=== PATIENT | male | born 1950 | race Caucasian/White ===

== ENCOUNTER 2017-02-20 12:08 | Emergency (ER) | payer MEDICARE, BC ==
[2017-02-20] MEDS ORDERED: NORMAL SALINE 1000 ML 1,000 ML IV ONE (12:22)
--- NOTE | 2017-02-20 12:25 | ER Document Report ---
ED Medical Screen (RME) - General Chief Complaint: Urinary Problem Stated Complaint: BACK PAIN,HEADACHE,CHILLS Time Seen by Provider: 02/20/17 12:22 Mode of Arrival: Wheelchair Information source: Patient TRAVEL OUTSIDE OF THE [place] IN LAST 30 DAYS: No - HPI Patient complains to provider of: dysuria, flank pain Onset: Other - Pt with long h/o prostate issues with c/o dysuria and bilaeral flank pain - Related Data Allergies/Adverse Reactions: No Known Allergies Allergy (Unverified 02/20/17 12:12) Past Medical History - Social History Frequency of alcohol use: Occasional Drug Abuse: None Renal/ Medical History: Denies: Hx Peritoneal Dialysis Physical Exam - Vital signs Vitals: Temp Pulse Resp BP Pulse Ox 99.1 F 89 16 139/76 H 98 02/20/17 12:13 02/20/17 12:13 02/20/17 12:13 02/20/17 12:13 02/20/17 12:13 Course - Vital Signs Vital signs: Temp Pulse Resp BP Pulse Ox 99.1 F 89 16 139/76 H 98 02/20/17 12:13 02/20/17 12:13 02/20/17 12:13 02/20/17 12:13 02/20/17 12:13
[2017-02-20 13:26] LABS: APPEARANCE,URINE CLOUDY; BILIRUBIN,URINE NEGATIVE (NEGATIVE); GLUCOSE, URINE 150 mg/dL (NEGATIVE); KETONES,URINE NEGATIVE (NEGATIVE); LEUKOCYTE ESTERASE,URINE LARGE (NEGATIVE); NITRITE,URINE POSITIVE (NEGATIVE); PROTEIN,URINE 100 mg/dL (NEGATIVE); URINE SPECIFIC GRAVITY 1.025
--- NOTE | 2017-02-20 14:25 | RADIOLOGY REPORT (SQ) ---
EXAM DESCRIPTION: CT LTD RENAL STONE PROTOCOL ON COMPLETED DATE/TIME: 02/20/2017 1:08 pm REASON FOR STUDY: L flank pain COMPARISON: None. TECHNIQUE: CT scan of the abdomen and pelvis performed without intravenous or oral contrast. Images reviewed with lung, soft tissue, and bone windows. Reconstructed coronal and sagittal MPR images revi ewed. All images stored on PACS. All CT scanners at this facility use dose modulation, iterative reconstruction, and/or weight based d osing when appropriate to reduce radiation dose to as low as reasonably achievable (ALARA). [facility]: Dose Right [facility]: CareDose [facility]: Dose Right [facility]: Teradose 4D [facility]: [employer] RADIATION DOSE: Up-to-date CT equipment and radiation dose reduction techniques were employed. CTDIv ol: 13.5 mGy. DLP: 772 mGy-cm.mGy. LIMITATIONS: None. FINDINGS: LOWER CHEST: Calcified granuloma right middle lobe axial image 1, benign. NON-CONTRASTED LIVER, SPLEEN, ADRENALS: Low attenuation throughout the liver from fatty infiltration. Focal sparing at the gallbladder fossa. Benign splenic granulomas. No splenomegaly. Adrenal glan ds unremarkable. PANCREAS: No masses. No peripancreatic inflammatory changes. GALLBLADDER: No identified stones by CT criteria. No inflammatory changes to suggest cholecystitis. RIGHT KIDNEY AND URETER: No suspicious masses. Assessment limited by lack of IV contrast. No signif icant calcifications. No hydronephrosis or hydroureter. LEFT KIDNEY AND URETER: No suspicious masses. Assessment limited by lack of IV contrast. No signifi cant calcifications. No hydronephrosis or hydroureter. AORTA AND RETROPERITONEUM: No aneurysm. No retroperitoneal masses or adenopathy. BOWEL AND PERITONEAL CAVITY: No obvious masses or inflammatory changes. No free fluid. Very redundan t sigmoid colon. Large amount of stool in the ascending and transverse colon. No dilated small dre l loops. APPENDIX: Normal. PELVIS, BLADDER, AND ABDOMINAL WALL:No abnormal masses. No free fluid. Bladder normal. BONES: Degenerative changes lower lumbar spine OTHER: No other significant finding. IMPRESSION: NO SIGNIFICANT OR ACUTE PROCESS IN THE ABDOMEN OR PELVIS. COMMENT: Quality ID # [id number]: Final reports with documentation of one or more dose reduction techniques (e.g., Automated exposure control, adjustment of the mA and/or kV according to patient size, use of iterative reconstruction technique) TECHNICAL DOCUMENTATION: JOB ID: [id number] [facility] [employer]- All Rights Reserved
[2017-02-20] MEDS ORDERED: ONDANSETRON HCL INJ/PF 4 MG/2 ML SDV IV ONE (14:49)
[2017-02-20] MEDS ORDERED: MORPHINE SULFATE 10 MG/ML INJ IV ONE (14:49)
[2017-02-20 15:38] LABS: ABSOLUTE EOSINOPHILS # (AUTO) 0.1 10^3/uL (0.0-0.6); ABSOLUTE LYMPHOCYTES (AUTO) 0.7 10^3/uL (0.5-4.7); ABSOLUTE MONOCYTES (AUTO) 0.5 10^3/uL (0.1-1.4); BASOPHILS % (AUTO) 0.3 % (0-2); EOSINOPHILS % (AUTO) 0.9 % (0-6); HEMATOCRIT 33.3 % (37.9-51.0); HGB HCT DIFFERENCE 2.7; LYMPHOCYTES % (AUTO) 11.1 % (13-45); MEAN CORPUSCULAR HEMOGLOBIN 32.9 pg (27.0-33.4); MEAN CORPUSCULAR VOLUME 91 fl (80-97); MONOCYTES % (AUTO) 8.1 % (3-13); RED BLOOD COUNT 3.65 10^6/uL (4.35-5.55); RED CELL DISTRIBUTION WIDTH 12.7 % (11.5-14.0); SEGMENTED NEUTROPHILS % (AUTO) 79.6 % (42-78); WHITE BLOOD COUNT 6.3 10^3/uL (4.0-10.5)
[2017-02-20 15:45] LABS: ALANINE AMINOTRANSFERASE 40 U/L (21-72); ALBUMIN 3.4 g/dL (3.5-5.0); ALKALINE PHOSPHATASE 54 U/L (38-126); ANION GAP 8 (5-19); ASPARTATE AMINO TRANSFERASE 31 U/L (17-59); BILIRUBIN,DIRECT 0.4 mg/dL (0.0-0.4); BLOOD UREA NITROGEN 18 mg/dL (7-20); CALCIUM 8.2 mg/dL (8.4-10.2); CARBON DIOXIDE 25 mmol/L (22-30); CHLORIDE 100 mmol/L (98-107); CREATININE RESULT 0.88 mg/dL (0.52-1.25); GLUCOSE 94 mg/dL (75-110); POTASSIUM 3.9 mmol/L (3.6-5.0); TOTAL PROTEIN 5.9 g/dL (6.3-8.2)
--- NOTE | 2017-02-20 16:08 | ER Document Report ---
ED GI/ - General Chief Complaint: Urinary Problem Stated Complaint: BACK PAIN,HEADACHE,CHILLS Time Seen by Provider: 02/20/17 12:22 Mode of Arrival: Wheelchair TRAVEL OUTSIDE OF THE [place] IN LAST 30 DAYS: No - HPI Patient complains to provider of: Dysuria, Flank pain Onset: Other - Saturday AM Timing/Duration: Gradual, Persistent Quality of pain: Achy Severity at maximum: Moderate Severity in ED: Moderate Location: Left flank, Right flank Sexual history: Active - with Associated symptoms: Dysuria, Loss of appetite, Nausea, Urinary frequency. denies: Chest pain, Chills, Diarrhea, Fever, Hard stool, Hematuria Exacerbated by: Denies Relieved by: Denies Similar symptoms previously: No - h/o UTI Recently seen / treated by doctor: No - Related Data Allergies/Adverse Reactions: No Known Allergies Allergy (Unverified 02/20/17 12:12) Past Medical History - General Information source: Patient - Social History Smoking Status: Never Smoker Chew tobacco use (# tins/day): No Frequency of alcohol use: Occasional Drug Abuse: None Family History: Reviewed & Not Pertinent Renal/ Medical History: Denies: Hx Peritoneal Dialysis - Immunizations Hx Diphtheria, Pertussis, Tetanus Vaccination: No Physical Exam - Vital signs Vitals: Temp Pulse Resp BP Pulse Ox 99.1 F 89 16 139/76 H 98 02/20/17 12:13 02/20/17 12:13 02/20/17 12:13 02/20/17 12:13 02/20/17 12:13 - Notes Notes: PHYSICAL EXAM GENERAL: Alert, interacts well. HEAD: Normocephalic, atraumatic. LUNGS: Clear to auscultation bilaterally, no wheezes, rales, or rhonchi. No respiratory distress. HEART: Regular rate and rhythm. No murmurs, gallops, or rubs. ABDOMEN: Soft, nondistended, nontender. No guarding, rebound, or rigidity.. Bowel sounds present in all 4 quadrants. EXTREMITIES: Moves all 4 extremities spontaneously. No edema, radial and dorsalis pedis pulses 2/4 bilaterally. No cyanosis. Back: Mild bilateral CVA tenderness without any paraspinous muscle tenderness, spinal process tenderness, deformities, step-offs NEUROLOGICAL: Alert and oriented x4. Normal speech. PSYCH: Normal affect, normal mood. SKIN: Warm, dry, normal turgor. No rashes or lesions noted. Course - Re-evaluation Re-evalutation: 02/20/17 18:35 Patient is a 67-year-old male who is hemodynamically stable, no acute distress with mild low-grade fever. Evidence of urinary tract infection with concern for clinical pyelonephritis based on exam. No evidence of hydronephrosis, hydroureter, renal stones noted on CT study. Patient will be discharged home on p.o. antibiotics and pain medication given strict return precautions. Patient and family at bedside agree with plan. Stable for discharge. - Vital Signs Vital signs: Temp Pulse Resp BP Pulse Ox 101.1 F H 83 14 140/74 H 94 02/20/17 16:20 02/20/17 16:20 02/20/17 16:20 02/20/17 16:20 02/20/17 16:20 - Laboratory Result Diagrams: 02/20/17 15:00 02/20/17 15:00 Laboratory results interpreted by me: 02/20/17 02/20/17 02/20/17 12:38 15:00 15:00 RBC 3.65 L Hgb 12.0 L Hct 33.3 L Plt Count 80 L Seg Neutrophils % 79.6 H Lymphocytes % 11.1 L Sodium 133.0 L Calcium 8.2 L Total Protein 5.9 L Albumin 3.4 L Urine Protein 100 H Urine Glucose (UA) 150 H Urine Blood LARGE H Urine Nitrite POSITIVE H Urine Urobilinogen 4.0 H Ur Leukocyte Esterase LARGE H - Diagnostic Test Radiology reviewed: Image reviewed, Reports reviewed Discharge - Discharge Clinical Impression: Pyelonephritis Condition: Good Disposition: HOME, SELF-CARE Additional Instructions: PYELONEPHRITIS: Your evaluation shows evidence of pyelonephritis. This is an infection in the kidney. Typical symptoms are fever, pain in the flank, pain on urination, and frequent urination. Many cases of pyelonephritis can be treated at home. Hospital care may be necessary for patients who are very ill, or elderly or . Pyelonephritis is treated with antibiotics. Be sure to take all the medication as prescribed. Drink plenty of liquids (about three quarts per day) . You may take acetaminophen for fever. You should feel significantly improved within two days. You should have a recheck of your urine in about one week to insure that the infection is gone. Return for a re-examination if your symptoms worsen in any way -- such as high fever, shaking chills, severe weakness or dizziness, severe pain, or inability to pass your urine. PAIN MEDICATION INJECTION: You have received an injection of a pain medication. You should experience significant pain relief within 45 minutes. This drug is a narcotic - - it will impair your judgement, slow your reaction time and make you sleepy ( as well as relieve your pain). Narcotics also can cause nausea. You should not drive, work with machinery, or perform any task requiring mental alertness until all effects of the medication are gone -- six to eight hours. Do not take any alcohol, or sedatives, and do not take any other medication without checking with your physician. ANTINAUSEA MEDICATION: You have been given a medication to suppress nausea and vomiting. This type of medication can be given as a shot, pill, or suppository. It will usually last for many hours. Pills and shots usually last six to eight hours, suppositories last about 12 hours. For the typical illness, only one or two doses of the medication may be necessary. Mild lightheadedness may occur. This type of medicine can cause drowsiness. Do not drive or operate dangerous machinery while under its influence. Do not mix with alcohol. See your doctor at once if you have muscle spasms or tightness, or uncontrollable motions (particularly of the neck, mouth, or jaw). Persistent vomiting or severe lightheadedness should also be evaluated by the physician. ANTIBIOTIC THERAPY: You have been given an antibiotic prescription. It's important that you take all the medication, unless instructed otherwise by your physician. Failure to complete the entire course can result in relapse of your condition. Common side effects of antibiotics include nausea, intestinal cramping, or diarrhea. Women may develop vaginal yeast infections, and babies can get yeast (thrush) in the mouth following the use of antibiotics. Contact your physician if you develop significant side effects from this medication. Allergy to this antibiotic can result in hives, wheezing, faintness, or itching. If symptoms of allergy occur, stop the medication and call the doctor. CIPROFLOXACIN: You have been given an antibacterial agent, ciprofloxacin (Cipro). This medicine is not related to the penicillins, sulfas, cephalosporins, or tetracyclines. It is often given to patients who are allergic to these drugs. It has been chosen for you either because other drugs are not appropriate, or because of the nature of your problem. Cipro should not be taken with antacids, as these can decrease its effectiveness. It can be taken without regard to meals. CIPRO SHOULD NOT BE TAKEN BY CHILDREN, NURSING WOMEN, OR WOMEN. Although Cipro is usually well-tolerated, common side effects can include nausea and diarrhea. Contact your doctor if you experience any unusual symptoms while on this medication, such as joint pain or swelling, shortness of breath, wheezing, faintness, or hives. USE OF ACETAMINOPHEN (Tylenol): Acetaminophen may be taken for pain relief or fever control. It's much safer than aspirin, offering a wider range of "safe" dosages. It is safe during . Some brand names are Tylenol, Panadol, Datril, Anacin 3, Tempra, and Liquiprin. Acetaminophen can be repeated every four hours. The following are maximum recommended dosages: >89 pounds or adults 650 mg to 900 mg Acetaminophen can be repeated every four hours. Maximum dose not to exceed 4000 mg a day. ORAL NARCOTIC MEDICATION: You have been given a prescription for pain control. This medication is a narcotic. It's best taken with food, as nausea can result if taken on an empty stomach. Don't operate machinery or drive within six hours of taking this medication. Do not combine this medicine with alcohol, or with any medication which can cause sedation (such as cold tablets or sleeping pills) unless you get permission from the physician. Narcotics tend to cause constipation. If possible, drink plenty of fluids and eat a diet high in fiber and fruits. Please be aware that prescription narcotics also have the potential for abuse. People become addicted to these medications because of the general sense of wellbeing that they induce. This feeling along with a significant reduction in tension, anxiety, and aggression provides a stimulating seductive quality to these drugs. Once your pain is under control, we encourage you to discard your unused narcotics. FOLLOW-UP CARE: If you have been referred to a physician for follow-up care, call the physician s office for an appointment as you were instructed or within the next two days. If you experience worsening or a significant change in your symptoms, notify the physician immediately or return to the Emergency Department at any time for re-evaluation. Prescriptions: Oxycodone HCl/Acetaminophen [Percocet 5-325 mg Tablet] 1 tab PO Q4HP PRN #15 tab PRN Reason: Ciprofloxacin HCl [Cipro] 500 mg PO BID #14 tablet Metoclopramide HCl [Reglan 10 mg Tablet] 1 - 2 tab PO ASDIR PRN #25 tablet PRN Reason: Referrals: FRANSISCO FENG MD [ACTIVE STAFF] - Follow up in 3-5 days
[2017-02-20] MEDS ORDERED: CIPROFLOXACIN HCL 500 MG TABLET PO ONE (16:20)
[2017-02-20] MEDS ORDERED: OXYCODONE-ACETAMINOPHEN 5-325 MG TABLET PO ONE (16:20)
[2017-02-20] MEDS ORDERED: IBUPROFEN 800 MG TABLET PO ONE (16:24)
[2017-02-20 16:35] VITALS: BP 140/74
== END 2017-02-20 16:52 | disposition home or self-care (01) ==
LOC: ER 12:08
DX: N12 Tubulo-interstitial nephritis, not specified as acute or chronic (principal); R39.198 Other difficulties with micturition; M54.9 Dorsalgia, unspecified; R51 Headache; R30.0 Dysuria; R63.0 Anorexia; R35.0 Frequency of micturition
CPT/HCPCS: 99283; 96374; 96375; 36415; 85025; 80053; 81001; 76380; A9270 ×3; J2270; J2405; J7030

== ENCOUNTER 2017-02-22 03:08 | Emergency (ER) | payer MEDICARE, BC ==
[2017-02-22] MEDS ORDERED: NORMAL SALINE 1000 ML 1,000 ML IV ONE (03:15)
[2017-02-22] MEDS ORDERED: MORPHINE SULFATE 10 MG/ML INJ IV ONE (03:43)
[2017-02-22 04:27] LABS: ABSOLUTE LYMPHOCYTES (AUTO) 0.4 10^3/uL (0.5-4.7); ABSOLUTE MONOCYTES (AUTO) 0.5 10^3/uL (0.1-1.4); ABSOLUTE NEUT (AUTO) 4.3 10^3/uL (1.7-8.2); BASOPHILS % (AUTO) 0.4 % (0-2); EOSINOPHILS % (AUTO) 0.6 % (0-6); HEMATOCRIT 34.3 % (37.9-51.0); HEMOGLOBIN 12.1 g/dL (13.5-17.0); LYMPHOCYTES % (AUTO) 7.8 % (13-45); MEAN CORPUSCULAR HEMOGLOBIN 32.1 pg (27.0-33.4); MEAN CORPUSCULAR HGB CONC 35.4 g/dL (32.0-36.0); MEAN CORPUSCULAR VOLUME 91 fl (80-97); MONOCYTES % (AUTO) 9.9 % (3-13); RED BLOOD COUNT 3.77 10^6/uL (4.35-5.55); RED CELL DISTRIBUTION WIDTH 12.7 % (11.5-14.0); SEGMENTED NEUTROPHILS % (AUTO) 81.3 % (42-78); WHITE BLOOD COUNT 5.3 10^3/uL (4.0-10.5)
[2017-02-22 04:34] LABS: ALANINE AMINOTRANSFERASE 51 U/L (21-72); ALBUMIN 3.6 g/dL (3.5-5.0); ALKALINE PHOSPHATASE 64 U/L (38-126); ANION GAP 10 (5-19); ASPARTATE AMINO TRANSFERASE 38 U/L (17-59); BILIRUBIN,DIRECT 0.5 mg/dL (0.0-0.4); BILIRUBIN,TOTAL 1.4 mg/dL (0.2-1.3); BLOOD UREA NITROGEN 21 mg/dL (7-20); CALCIUM 8.9 mg/dL (8.4-10.2); CARBON DIOXIDE 23 mmol/L (22-30); CHLORIDE 101 mmol/L (98-107); CREATININE RESULT 0.86 mg/dL (0.52-1.25); GLUCOSE 144 mg/dL (75-110); SODIUM 134.1 mmol/L (137-145); TOTAL PROTEIN 6.2 g/dL (6.3-8.2)
[2017-02-22 04:50] LABS: APPEARANCE,URINE SLIGHTLY-CLOUDY; BILIRUBIN,URINE NEGATIVE (NEGATIVE); GLUCOSE, URINE NEGATIVE (NEGATIVE); KETONES,URINE TRACE mg/dL (NEGATIVE); LEUKOCYTE ESTERASE,URINE NEGATIVE (NEGATIVE); NITRITE,URINE NEGATIVE (NEGATIVE); PROTEIN,URINE 100 mg/dL (NEGATIVE); UROBILINOGEN,URINE NEGATIVE mg/dL (<2.0)
[2017-02-22] MEDS ORDERED: DICYCLOMINE HCL 20 MG TABLET PO ONE (05:02)
[2017-02-22] MEDS ORDERED: SENNOSIDES/DOCUSATE 8.6-50 MG 1 EACH TABLET PO ONE (05:02)
--- NOTE | 2017-02-22 05:08 | ER Document Report ---
ED GI/ - General Chief Complaint: Flank Pain Stated Complaint: FLANK PAIN Time Seen by Provider: 02/22/17 03:14 Mode of Arrival: Medic Information source: Patient Notes: Patient is a 67-year-old male who presents to the ER today for low back pain and allover abdominal pain that has continued since being seen here yesterday for the same symptoms. Patient was diagnosed with a urinary tract infection yesterday, sent home on antibiotics with Percocet. Patient states that the Percocet is not helping with the pain and that is why he is come back in today. He denies any fever, chills, hematuria that he is noticed. He has a history of one kidney stone but states that this pain does not feel like that as it is all across his lower back and all of his abdomen. TRAVEL OUTSIDE OF THE [place] IN LAST 30 DAYS: No - Related Data Allergies/Adverse Reactions: No Known Allergies Allergy (Unverified 02/20/17 12:12) Past Medical History - General Information source: Patient - Social History Smoking Status: Never Smoker Chew tobacco use (# tins/day): No Frequency of alcohol use: Social Drug Abuse: None Family History: Reviewed & Not Pertinent Renal/ Medical History: Denies: Hx Peritoneal Dialysis - Immunizations Hx Diphtheria, Pertussis, Tetanus Vaccination: No Review of Systems - Review of Systems Constitutional: No symptoms reported EENT: No symptoms reported Cardiovascular: No symptoms reported Respiratory: No symptoms reported Gastrointestinal: See HPI Genitourinary: See HPI Male Genitourinary: No symptoms reported Musculoskeletal: No symptoms reported Skin: No symptoms reported Hematologic/Lymphatic: No symptoms reported Neurological/Psychological: No symptoms reported Physical Exam - Vital signs Vitals: Temp Pulse Resp BP Pulse Ox 101.6 F H 101 H 18 156/68 H 98 02/22/17 03:26 02/22/17 03:26 02/22/17 03:26 02/22/17 03:26 02/22/17 03:26 - Notes Notes: PHYSICAL EXAMINATION: GENERAL: Obviously uncomfortable, but in no acute distress. HEAD: Atraumatic, normocephalic. EYES: Pupils equal round and reactive to light, extraocular movements intact, sclera anicteric, conjunctiva are normal. NECK: Normal range of motion, supple without lymphadenopathy LUNGS: CTAB and equal. No wheezes rales or rhonchi. HEART: Regular rate and rhythm without murmurs ABDOMEN: Soft, no tenderness. No guarding, no rebound BACK: no vertebral tenderness, normal ROM GI/: no CVA tenderness EXTREMITIES: Normal range of motion, no pitting edema. No cyanosis. NEUROLOGICAL: Cranial nerves grossly intact. Normal sensory/motor exams. PSYCH: Normal mood, normal affect. SKIN: Warm, Dry, normal turgor, no rashes or lesions noted Course - Re-evaluation Re-evalutation: 02/22/17 05:05 Patient is completely nontender to CVA, back or abdominal exam. I did review the CAT scan report from yesterday which revealed no sign of kidney stone, however did report large amount of stool in the ascending and transverse colon. Patient has not taken anything to have a bowel movement. There was no sign on CAT scan of bowel obstruction. I will give patient laxative at this time as I do believe this is causing his continued pain as his urinalysis is actually much better today. I will advise that he continue taking his antibiotic for his UTI that was obvious yesterday on urinalysis. I will not provide him more pain medication. - Vital Signs Vital signs: Temp Pulse Resp BP Pulse Ox 101.6 F H 84 18 174/70 H 94 02/22/17 03:26 02/22/17 04:34 02/22/17 04:34 02/22/17 04:34 02/22/17 04:34 - Laboratory Result Diagrams: 02/22/17 04:02 02/22/17 04:02 Laboratory results interpreted by me: 02/22/17 02/22/17 02/22/17 04:02 04:02 04:04 RBC 3.77 L Hgb 12.1 L Hct 34.3 L Plt Count 81 L Seg Neutrophils % 81.3 H Lymphocytes % 7.8 L Absolute Lymphocytes 0.4 L Sodium 134.1 L BUN 21 H Glucose 144 H Total Bilirubin 1.4 H Direct Bilirubin 0.5 H Total Protein 6.2 L Urine Protein 100 H Urine Ketones TRACE H Urine Blood MODERATE H Discharge - Discharge Clinical Impression: Pyelonephritis Constipation Qualifiers: Constipation type: unspecified constipation type Qualified Code(s): K59.00 - Constipation, unspecified Condition: Stable Disposition: HOME, SELF-CARE Additional Instructions: Return immediately for any new or worsening symptoms. Follow up with primary care provider, call tomorrow to make followup appointment. Please drink plenty of fluids. Prescriptions: Polyethylene Glycol 3350 [Miralax] 527 gm PO DAILY #1 powder
[2017-02-22 05:17] VITALS: BP 120/65
== END 2017-02-22 05:27 | disposition home or self-care (01) ==
LOC: ER 03:08
DX: N12 Tubulo-interstitial nephritis, not specified as acute or chronic (principal); K59.00 Constipation, unspecified; R10.9 Unspecified abdominal pain; M54.5 Low back pain
CPT/HCPCS: 99284; 96361; 96374; 36415; 87086; 85025; 80053; 81001; A9270 ×2; J2270; J7030; J3490

== ENCOUNTER → 2017-03-01 | Outpatient (CLI) | payer MEDICARE, BC ==
[2017-03-01 11:29] LABS: ANION GAP 13 (5-19); BLOOD UREA NITROGEN 26 mg/dL (7-20); CARBON DIOXIDE 23 mmol/L (22-30); CHLORIDE 103 mmol/L (98-107); CREATININE RESULT 0.85 mg/dL (0.52-1.25); GLUCOSE 73 mg/dL (75-110); POTASSIUM 4.9 mmol/L (3.6-5.0); SODIUM 138.9 mmol/L (137-145)
== END ==
LOC: OD 09:51
PROVIDERS: ATTEND Physician Assistant
DX: E87.5 Hyperkalemia (principal)
CPT/HCPCS: 36415; 80048

== ENCOUNTER → 2017-03-11 | Outpatient (CLI) | payer MEDICARE, BC ==
--- NOTE | 2017-03-11 12:23 | RADIOLOGY REPORT (SQ) ---
EXAM DESCRIPTION: SHOULDER RIGHT 2 OR MORE VIEWS COMPLETED DATE/TIME: 03/11/2017 10:55 am REASON FOR STUDY: ENCOUNTER FOR OTHER PREPROCEDURAL EXAMINATION Z01.818 ENCOUNTER FOR OTHER PREPROC EDURAL EXAMINATION COMPARISON: None. NUMBER OF VIEWS: Three views. TECHNIQUE: Internal rotation, external rotation, and Y view images acquired of the right shoulder. LIMITATIONS: None. FINDINGS: MINERALIZATION: Normal. BONES: Orthopedic screws in the humeral head. No acute fracture or dislocation. No worrisome bone l esions. JOINTS: No dislocation. VISUALIZED LUNGS AND RIBS: No pneumothorax. No rib fracture. Calcified granuloma. SOFT TISSUES: No radiopaque foreign body. OTHER: No other significant finding. IMPRESSION: NO RADIOGRAPHIC EVIDENCE OF ACUTE INJURY. TECHNICAL DOCUMENTATION: JOB ID: [id number] [employer]- All Rights Reserved
== END ==
LOC: OD 10:41
PROVIDERS: ATTEND Physician Assistant
DX: Z01.818 Encounter for other preprocedural examination (principal); M54.5 Low back pain

== ENCOUNTER → 2017-03-14 | Outpatient (CLI) | payer MEDICARE, BC ==
--- NOTE | 2017-03-14 14:23 | RADIOLOGY REPORT (SQ) ---
EXAM DESCRIPTION: MRI LUMBAR SPINE WITHOUT COMPLETED DATE/TIME: 03/14/2017 11:35 am REASON FOR STUDY: LOW BACK PAIN (M54.5) M54.5 LOW BACK PAIN COMPARISON: CT abdomen pelvis 02/20/2017 TECHNIQUE: Sagittal and Axial imaging includes T1, T2, STIR and gradient echo sequences. Coronal T2/ HASTE imaging. LIMITATIONS: None. FINDINGS: VISUALIZED UPPER ABDOMEN: Limited evaluation. No acute or suspicious findings suggested. SEGMENTATION: No transitional anatomy. The lowest well-developed disc space is labeled L5-S1. ALIGNMENT: Grade 1 anterolisthesis of L4 over L5 related to advanced bilateral facet arthropathy. VERTEBRAE: Lumbar vertebral body height intact. T12 normal height. BONE MARROW: At the very upper edge of the field of view, abnormal decreased T1 and increased T2 weig hted marrow signal is present in the T11 vertebral body. The entire vertebral body is not included i n the field of view of today's lumbar exam. MRI of the thoracic spine without and with contrast roma mmended for further evaluation. DISC SIGNAL: Decreased T2 weighted intervertebral disc signal with disc space loss of height at L3-4 and L4-5. Decreased T2 weighted intervertebral disc signal without overall loss of height at L5-S1. At upper edge of the field view, disc space loss of height with decreased T2 weighted signal and the T11-12 intervertebral disc is seen POSTERIOR ELEMENTS: Advanced bilateral facet arthropathy at L4-5 HARDWARE: None in the spine. CORD AND CONUS: Normal in size and signal intensity. Conus at the L1 level. SOFT TISSUES: No aortic aneurysm seen. No bulky retroperitoneal adenopathy or mass. No paraspinal mas s or fluid. T11-12: Mild posterior disc bulging is present, with moderate right and mild left facet hypertrophy. No central stenosis or left foraminal narrowing. Mild right foraminal narrowing. T12-L1: No significant central or foraminal stenosis. Minimal bilateral facet hypertrophy. L1-L2: No significant central or foraminal stenosis. Mild bilateral facet hypertrophy. L2-L3: No significant central or foraminal stenosis. Mild bilateral facet hypertrophy. L3-L4: Mild central canal stenosis results from broad diffuse posterior disc bulge and bony spurring, a chronic appearing left paracentral disc protrusion, and bulky bilateral facet and ligament hypertr ophy. There is flattening of the thecal sac into a triangular shape without high-grade impingement o n the exiting L3 or proximal L4 nerve roots in the lateral recess. These changes are best shown on a xial T2 images 15-19. There is mild bilateral inferior foraminal narrowing without exiting L3 nerve root impingement. L4-L5: Mild central canal stenosis results from broad diffuse posterior disc bulge and bony spurring, and bulky bilateral facet and ligament hypertrophy. There is flattening of the thecal sac into a tr iangular shape without exiting L4 or proximal L5 nerve root impingement. A 7 mm facet joint synovial cyst protrudes off the lateral aspect of the left L4-5 facet joint, without definite exiting left L4 nerve root impingement, best shown on axial T2 image 23. There is moderate right and mild left fora louie narrowing without definite exiting L4 nerve root impingement. L5-S1: Minimal diffuse posterior disc bulging, moderate bilateral facet hypertrophy. Mild rightward flattening of the thecal sac from right-sided facet and ligament hypertrophy on axial image 30. Bord gay central stenosis. Mild right foraminal narrowing, mild left foraminal narrowing without exiti ng L5 nerve root impingement. Incidental finding of a 4 mm cyst protruding off the lateral aspect of the left L5-S1 facet joint without exit nerve root impingement, best shown on axial T2 image 29. SACRUM: Visualized upper sacrum intact. OTHER: No other significant findings. IMPRESSION: Lower lumbar advanced facet arthropathy. Abnormal vertebral body marrow signal at the upper edge of the field of view with throughout the lowe r half of the T11 vertebral body. MRI of the thoracic spine without and with contrast recommended fo r followup TECHNICAL DOCUMENTATION: JOB ID: [id number] [employer] All Rights Reserved
== END ==
LOC: RAD 09:50
PROVIDERS: ATTEND Family Medicine
DX: M54.5 Low back pain (principal)
CPT/HCPCS: 72148

== ENCOUNTER → 2017-03-27 | Outpatient (CLI) | payer MEDICARE, BC ==
--- NOTE | 2017-03-27 15:24 | RADIOLOGY REPORT (SQ) ---
EXAM DESCRIPTION: MRI THORACIC SPINE COMBO COMPLETED DATE/TIME: 03/27/2017 2:39 pm REASON FOR STUDY: ABNORMANL MRI AND BACK PAIN (R93.8, M54.5) R93.8 ABNORMAL FINDINGS ON DIAGNOSTIC IMAGING OF BODY STRUCT M54.5 LOW BACK PAIN COMPARISON: CT abdomen and pelvis 02/20/2017 MRI lumbar spine 03/14/2017 TECHNIQUE: Sagittal and Axial imaging includes T1, T2, STIR and gradient echo sequences. T1 post ga dolinium sequences. CONTRAST TYPE AND DOSE: 15 mL Multihance. RENAL FUNCTION: GFR > 60. LIMITATIONS: None. FINDINGS: At the T10-11 level, there are findings worrisome for discitis with vertebral body osteomy elitis. The inferior half of T10 and nearly the entire T11 vertebral body exhibits marrow edema and avid gado linium enhancement. There is destruction of the inferior T10 and upper T11 vertebral body endplates. Minimal enhancing paraspinal phlegmon is present around the periphery of the T10-11 level best shown on far right sagittal postcontrast T1 image 5, and far left lateral post-contrast T1 sagittal image 1 5. There is rightward posterior disc bulging, with high-grade right T10-11 foraminal narrowing best show n on axial image 44. No definite epidural abscess is identified. There is no mass effect on the distal thoracic cord. Th joelle findings were discussed with Dr. Srivastava, 1440 hours 03/27/2017. LOCALIZER: No worrisome findings. ALIGNMENT: Normal. VERTEBRAE: No thoracic compression deformity BONE MARROW: Findings worrisome for discitis with vertebral body osteomyelitis at T10-11 as above HARDWARE: None in the spine. CORD: Normal in size and signal intensity. SOFT TISSUES: Enhancing soft tissue phlegmon around the periphery of the T10-11 disc space. THORACIC DISCS T1-T12: Right paracentral disc protrusion at T10-11 causing high-grade right foraminal narrowing. Mild posterior disc bulge at the T7-8 and T9-10 levels without significant central steno sis. LOWER CERVICAL: Not in the field of view UPPER LUMBAR: Unremarkable ENHANCEMENT: Abnormal T10-11 intervertebral disc enhancement and adjacent vertebral body enhancement worrisome for discitis OTHER: No other significant finding. 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 Srivastava TECHNICAL DOCUMENTATION: JOB ID: [id number] [employer]- All Rights Reserved
== END ==
LOC: RAD 13:22
PROVIDERS: ATTEND Family Medicine
DX: R93.8 Abnormal findings on diagnostic imaging of other specified body structures (principal); M54.5 Low back pain
CPT/HCPCS: 72157; A9577

== ENCOUNTER → 2017-05-10 | Outpatient (CLI) | payer MEDICARE, BC ==
--- NOTE | 2017-05-10 13:55 | RADIOLOGY REPORT (SQ) ---
EXAM DESCRIPTION: HIPS BILATERAL COMPLETED DATE/TIME: 05/10/2017 1:48 pm REASON FOR STUDY: DAWSON HIP PAIN M25.552 PAIN IN LEFT HIP M25.551 PAIN IN RIGHT HIP COMPARISON: None. NUMBER OF VIEWS: Two views TECHNIQUE: AP pelvis and additional frog-leg view of both hips. LIMITATIONS: None. FINDINGS: MINERALIZATION: Normal. HIPS: No acute fracture or dislocation. No worrisome bone lesions. PELVIS AND SACRUM: No acute fracture or dislocation. No worrisome bone lesions. PUBIS AND ISCHIUM: No acute fracture. LOWER LUMBAR SPINE: No significant findings as visualized. SOFT TISSUES: No findings. OTHER: No other significant finding. IMPRESSION: NEGATIVE STUDY OF THE PELVIS AND HIPS. TECHNICAL DOCUMENTATION: JOB ID: [id number] [employer]- All Rights Reserved
== END ==
LOC: OD 13:31
PROVIDERS: ATTEND Family Medicine
DX: M25.551 Pain in right hip (principal); M25.552 Pain in left hip
CPT/HCPCS: 73522

== ENCOUNTER → 2017-09-30 | Day surgery (SDC) | payer MEDICARE, BC ==
--- NOTE | 2017-09-30 14:27 | RADIOLOGY REPORT (SQ) ---
EXAM DESCRIPTION: ARTHRO HIP; FLUORO/NEEDLE PLACEMENT COMPLETED DATE/TIME: 09/30/2017 2:04 pm REASON FOR STUDY: OTHER SPRAIN OF LEFT HIP, INITIAL ENCOUNTER S73.192A OTHER SPRAIN OF LEFT HIP, IN ITIAL ENCOUNTER COMPARISON: None. FLUOROSCOPY TIME: 0.4 minutes 1 images saved to PACS. LIMITATIONS: None. PROCEDURE: Procedure, risks, benefits and alternatives explained to patient who then gave written c onsent. The left hip was marked and a time-out was called for correct marking verification. Entry s ite marked using fluoroscopic guidance. Hip prepped and draped using sterile technique. Local anes thesia achieved using 1% lidocaine injection. Hypodermic needle introduced into the joint space und er direct fluoroscopic visualization. Non-ionic contrast instilled to confirm intra-articular positi on. Dilute gadolinium solution then injected. Needle removed and entry site covered with sterile b andage. No immediate complications noted. TECHNIQUE: Digital images acquired during fluoroscopy and stored on PACS. Patient immediately take n to the MR suite for additional imaging. INJECTION LOCATION: Left hip. CONTRAST TYPE AND AMOUNT: 1 cc Isovue 10 cc Prohance/Saline mixture. IMPRESSION: SUCCESSFUL NEEDLE PLACEMENT AND INJECTION FOR LEFT HIP MR ARTHROGRAM. COMMENT: Quality ID 145: Final reports for procedures using fluoroscopy that document radiation exp osure indices, or exposure time and number of fluorographic images (if radiation exposure indices are not available) TECHNICAL DOCUMENTATION: JOB ID: [id number] [employer]- All Rights Reserved Reading location - IP/workstation name: [facility]
--- NOTE | 2017-09-30 14:27 | RADIOLOGY REPORT (SQ) ---
EXAM DESCRIPTION: ARTHRO HIP; FLUORO/NEEDLE PLACEMENT COMPLETED DATE/TIME: 09/30/2017 2:04 pm REASON FOR STUDY: OTHER SPRAIN OF LEFT HIP, INITIAL ENCOUNTER S73.192A OTHER SPRAIN OF LEFT HIP, IN ITIAL ENCOUNTER COMPARISON: None. FLUOROSCOPY TIME: 0.4 minutes 1 images saved to PACS. LIMITATIONS: None. PROCEDURE: Procedure, risks, benefits and alternatives explained to patient who then gave written c onsent. The left hip was marked and a time-out was called for correct marking verification. Entry s ite marked using fluoroscopic guidance. Hip prepped and draped using sterile technique. Local anes thesia achieved using 1% lidocaine injection. Hypodermic needle introduced into the joint space und er direct fluoroscopic visualization. Non-ionic contrast instilled to confirm intra-articular positi on. Dilute gadolinium solution then injected. Needle removed and entry site covered with sterile b andage. No immediate complications noted. TECHNIQUE: Digital images acquired during fluoroscopy and stored on PACS. Patient immediately take n to the MR suite for additional imaging. INJECTION LOCATION: Left hip. CONTRAST TYPE AND AMOUNT: 1 cc Isovue 10 cc Prohance/Saline mixture. IMPRESSION: SUCCESSFUL NEEDLE PLACEMENT AND INJECTION FOR LEFT HIP MR ARTHROGRAM. COMMENT: Quality ID 145: Final reports for procedures using fluoroscopy that document radiation exp osure indices, or exposure time and number of fluorographic images (if radiation exposure indices are not available) TECHNICAL DOCUMENTATION: JOB ID: [id number] [employer]- All Rights Reserved Reading location - IP/workstation name: [facility]-RR
--- NOTE | 2017-09-30 15:33 | RADIOLOGY REPORT (SQ) ---
EXAM DESCRIPTION: MRI LT LOWER JOINT WITH COMPLETED DATE/TIME: 09/30/2017 2:51 pm REASON FOR STUDY: OTHER SPRAIN OF LEFT HIP, INITIAL ENCOUNTER S73.192A OTHER SPRAIN OF LEFT HIP, IN ITIAL ENCOUNTER COMPARISON: None. TECHNIQUE: Post arthrogram imaging is performed using T1 and T1 and T2 fat saturated sequences of th e pelvis and specific hip of interest. LIMITATIONS: None. FINDINGS: JOINT DISTENSION: Adequate distention. Several tiny loose bodies in the joint. BONE MARROW: No edema. No marrow replacement. FEMORAL HEAD, NECK, AND ACETABULUM: Femoral head osteophytes and subchondral edema. Subchondral cyst formation in the acetabulum. PUBIC RAMI AND ISCHIUM: No occult fracture. SACRUM AND SRINIVASA: SI joints normal in signal. No occult fracture. LABRUM AND CARTILAGE: Torn superior labrum. Perilabral cysts. MUSCLES AND SOFT TISSUES: Adductors and piriformis normal. Abductors and greater trochanteric bursa n ormal without edema or fluid. Iliopsoas bursa without fluid. Hamstring attachments without edema or t ear. PELVIC SOFT TISSUES: No masses or adenopathy. SCIATIC NERVE: Identified without masses. OTHER: No other significant finding. IMPRESSION: 1. Chronic labral tear with associated paralabral cysts. 2. Osteoarthritis. Small loose bodies in the joint. TECHNICAL DOCUMENTATION: JOB ID: [id number] [employer]- All Rights Reserved Reading location - IP/workstation name: [facility]-RR
== END ==
LOC: RAD 12:48
PROVIDERS: ATTEND Physical Medicine & Rehabilitation
DX: S73.192A Other sprain of left hip, initial encounter (principal); X58.XXXA Exposure to other specified factors, initial encounter; M16.12 Unilateral primary osteoarthritis, left hip; M24.852 Other specific joint derangements of left hip, not elsewhere classified
CPT/HCPCS: 73722; 73525; 77002; A9576

== ENCOUNTER 2017-12-12 07:43 | Day surgery (SDC) | payer MEDICARE, BC ==
[~2017-12-12 07:43] MED LIST: KETOROLAC TROMETHAMINE 0.45% 4 DROP/0.4 ML DROPERETTE OS PRN; MIDAZOLAM 2 MG/2 ML INJ ONE
[2017-12-12] MEDS: BESIFLOXACIN HCL 0.6% OPH SUSP 5 ML BOTTLE OS PRN ×5 (08:47→09:35)
[2017-12-12] MEDS: CYCLOPENTOLATE 0.2%/PHENYLEPHRINE 1% OPH SOLN 2 ML OS PRN ×3 (08:47→09:08)
[2017-12-12] MEDS: TETRACAINE HCL 0.5% OPH SOLN 2 ML OS PRN ×3 (08:47→09:12)
[2017-12-12] MEDS: TROPICAMIDE 1% OPH SOLN 3 ML OS PRN ×3 (08:47→09:08)
[2017-12-12] MEDS: EPINEPHRINE INJ/PF 1 MG/1 ML AMPULE ONE ×2 (09:23)
[2017-12-12] MEDS: CHONDR SU A NA/HYALUR INTRAOC KIT (SURGICARE) ONE ×2 (09:23)
[2017-12-12] MEDS: LIDOCAINE 1% INJ-PF (10 MG/ML) 30 ML SDV ONE ×2 (09:24)
[2017-12-12] MEDS ORDERED: LIDOCAINE 1%/PHENYLEPHRINE 1.5% 1 ML VIAL ONE (09:34)
[2017-12-12] MEDS ORDERED: MIDAZOLAM 2 MG/2 ML INJ ONE (09:40)
--- NOTE | 2017-12-12 16:21 | [facility] OPERATIVE REPORT E ---
[facility] Operative Report NAME: ARIEL COSTELLO AGE: 67Y DATE OF SURGERY: 12/12/2017 ROOM: PREOPERATIVE DIAGNOSIS: CATARACT, LEFT EYE. POSTOPERATIVE DIAGNOSIS: CATARACT, LEFT EYE. OPERATION: Cataract extraction with insertion of an IOL of the left eye. SURGEON: MARIIA ONEILL M.D. ANESTHESIA: Topical. PROCEDURE: After obtaining appropriate consent, the patient's left eye was prepped and draped in sterile fashion as well as the surgeon in a sterile manner and cataract surgery was started. First a paracentesis blade was used to make a side-port incision. Viscoelastic was used to inflate the anterior chamber. Next a 2.4 mm incision was made with a 2.4 mm blade, clear corneal temporally. A continuous capsulorrhexis was made using a cystotome and Utrata forceps. Following this hydrodissection was carried out to make the lens fully loose and mobile and it was rotated 90 degrees. Following this, a qzcqqq-gki-wbzwrpb technique was used to phacoemulsify the lens with a CDE of 4.87. The remaining cortex was removed with irrigation/aspiration. Provisc was instilled into the capsular bag to inflate the bag. A SN60WF, 20.5 diopter lens was placed. The remaining viscoelastic material was removed with irrigation/aspiration. Following this, the incision was found to be watertight. Besivance was instilled into the eye and a protective shield was placed over the eye. The patient returned to the postoperative recovery in stable condition. DICTATING PHYSICIAN: MARIIA ONEILL M.D. [id number] PHY#: [id number] ID: [id number] JOB#: [id number] ACCT: [id number] cc:MARIIA ONEILL M.D. >
--- NOTE | 2017-12-12 16:26 | [facility] DISCHARGE SUMMARY E ---
[facility] Discharge Summary NAME: ARIEL COSTELLO AGE: 67Y ADMITTED: 12/12/2017 DISCHARGED: 12/12/2017 HOSPITAL COURSE: This is a 67-year-old male who underwent cataract extraction of the left eye. DIAGNOSIS: CATARACT, LEFT EYE. He underwent surgery because he was having difficulty seeing road signs. DISCHARGE INSTRUCTIONS: He should be on a regular diet. No bending at his waist, no heavy lifting. He should use his Besivance, Ilevro, and Durezol at 3 p.m. and 8 p.m. and sleep with a rigid shield. I will see him for a 1 day postoperative tomorrow. DICTATING PHYSICIAN: MARIIA ONEILL M.D. [id number] PHY#: [id number] ID: [id number] JOB#: [id number] ACCT: [id number] cc:MARIIA ONEILL M.D. >
== END 2017-12-12 10:27 | disposition home or self-care (01) ==
LOC: SC 07:43
PROVIDERS: ATTEND Internal Medicine
DX: H25.13 Age-related nuclear cataract, bilateral (principal); H43.813 Vitreous degeneration, bilateral; H30.0 Focal chorioretinal inflammation; E78.00 Pure hypercholesterolemia, unspecified; E66.9 Obesity, unspecified; Z79.82 Long term (current) use of aspirin; Z79.899 Other long term (current) drug therapy; Z68.32 Body mass index [BMI] 32.0-32.9, adult
CPT/HCPCS: 66984; V2632; J2250; J3490 ×2; A9270; J0171; J2370; 142

== ENCOUNTER 2018-01-09 08:38 | Day surgery (SDC) | payer MEDICARE, BC ==
[~2018-01-09 08:38] MED LIST changes: +KETOROLAC TROMETHAMINE 0.45% 4 DROP/0.4 ML DROPERETTE OD PRN; -KETOROLAC TROMETHAMINE 0.45% 4 DROP/0.4 ML DROPERETTE OS PRN; +LIDOCAINE 1% INJ-PF (10 MG/ML) 30 ML SDV ONE; -MIDAZOLAM 2 MG/2 ML INJ ONE
[2018-01-09] MEDS: BESIFLOXACIN HCL 0.6% OPH SUSP 5 ML BOTTLE OD PRN ×4 (09:18→10:11)
[2018-01-09] MEDS: CYCLOPENTOLATE 0.2%/PHENYLEPHRINE 1% OPH SOLN 2 ML OD PRN ×3 (09:18→09:40)
[2018-01-09] MEDS: TETRACAINE HCL 0.5% OPH SOLN 2 ML OD PRN ×3 (09:18→09:54)
[2018-01-09] MEDS: TROPICAMIDE 1% OPH SOLN 3 ML OD PRN ×3 (09:18→09:40)
[2018-01-09] MEDS ORDERED: MIDAZOLAM 2 MG/2 ML INJ ONE (09:45)
[2018-01-09] MEDS ORDERED: FENTANYL CITRATE INJ/PF 100 MCG/2 ML AMPUL ONE (09:45)
[2018-01-09] MEDS: EPINEPHRINE INJ/PF 1 MG/1 ML AMPULE ONE ×2 (09:56→09:59)
[2018-01-09] MEDS: LIDOCAINE 1%/PHENYLEPHRINE 1.5% 1 ML VIAL ONE ×2 (09:57→09:59)
[2018-01-09] MEDS: CHONDR SU A NA/HYALUR INTRAOC KIT (SURGICARE) ONE ×2 (09:57→09:59)
--- NOTE | 2018-01-09 21:15 | [facility] OPERATIVE REPORT E ---
[facility] Operative Report NAME: ARIEL COSTELLO AGE: 68Y DATE OF SURGERY: 01/09/2018 ROOM: PREOPERATIVE DIAGNOSIS: CATARACT, RIGHT EYE. POSTOPERATIVE DIAGNOSIS: CATARACT, RIGHT EYE. OPERATION: Cataract extraction with insertion of an IOL of the right eye. SURGEON: MARIIA ONEILL M.D. ANESTHESIA: Topical. PROCEDURE: After obtaining appropriate consent, the patient's right eye was prepped and draped in sterile fashion as well as the surgeon in a sterile manner and cataract surgery was started. First a paracentesis blade was used to make a side-port incision. Viscoelastic was used to inflate the anterior chamber. Next a 2.4 mm incision was made with a 2.4 mm blade, clear corneal temporally. A continuous capsulorrhexis was made using a cystotome and Utrata forceps. Following this hydrodissection was carried out to make the lens fully loose and mobile and it was rotated 90 degrees. Following this, a ulinsj-lio-xzbkqzm technique was used to phacoemulsify the lens with a CDE of 4.55 lens. The remaining cortex was removed with irrigation/aspiration. Provisc was instilled into the capsular bag to inflate the bag. A SN60WF, 19.5 diopter lens was placed. The remaining viscoelastic material was removed with irrigation/aspiration. Following this, the incision was found to be watertight. Besivance was instilled into the eye and a protective shield was placed over the eye. The patient returned to the postoperative recovery in stable condition. DICTATING PHYSICIAN: MARIIA ONEILL M.D. [id number] PHY#: [id number] 2006 ID: [id number] JOB#: [id number] ACCT: [id number] cc:MARIIA ONEILL M.D. > MTDD
--- NOTE | 2018-01-09 21:20 | [facility] DISCHARGE SUMMARY E ---
[facility] Discharge Summary NAME: ARIEL COSTELLO AGE: 68Y ADMITTED: 01/09/2018 DISCHARGED: 01/09/2018 HISTORY OF PRESENT ILLNESS AND HOSPITAL COURSE: This is a 67-year-old patient who underwent cataract extraction of the right eye. DIAGNOSIS: Cataract, right eye. HOSPITAL COURSE: He underwent surgery because he was having trouble seeing road signs. DISCHARGE INSTRUCTIONS: 1. He should be on a regular diet. 2. No bending at the waist and no heavy lifting. 3. He should use her Besivance, Ilevro, and Durezol at 3 p.m. and 8 p.m. and sleep with a rigid shield. 4. I will see him for her one-day postoperative tomorrow. DICTATING PHYSICIAN: MARIIA ONEILL M.D. [id number] PHY#: [id number] 2006 ID: [id number] JOB#: [id number] ACCT: [id number] cc:MARIIA ONEILL M.D. >
== END 2018-01-09 10:44 | disposition home or self-care (01) ==
LOC: SC 08:38
PROVIDERS: ATTEND Internal Medicine
DX: H25.11 Age-related nuclear cataract, right eye (principal); Z96.1 Presence of intraocular lens; M19.90 Unspecified osteoarthritis, unspecified site; K21.9 Gastro-esophageal reflux disease without esophagitis; G47.30 Sleep apnea, unspecified; Z79.899 Other long term (current) drug therapy; Z79.1 Long term (current) use of non-steroidal anti-inflammatories (NSAID); Z79.82 Long term (current) use of aspirin
CPT/HCPCS: 66984; V2632; J2250; J3490; A9270; J0171; J3010; J2370; 142

== ENCOUNTER → 2018-05-09 | Outpatient (CLI) | payer MEDICARE, BC ==
--- NOTE | 2018-05-09 11:34 | RADIOLOGY REPORT (SQ) ---
EXAM DESCRIPTION: MRI HEAD WITHOUT COMPLETED DATE/TIME: 05/09/2018 10:56 am REASON FOR STUDY: R42 DIZZINESS AND GIDDINESS R42 DIZZINESS AND GIDDINESS COMPARISON: None. TECHNIQUE: Multiplanar imaging includes non-contrasted T1, T2, FLAIR, and diffusion with ADC map seq uences. Images stored on PACS. LIMITATIONS: None. FINDINGS: ANATOMY: No anomalies. Normal vascular flow voids. Pituitary fossa normal. CSF SPACES: Normal in size and contour. No hemorrhage. CEREBRUM: Sulci and gyri normal in size and contour. Normal white matter signal on FLAIR imaging. No evidence of hemorrhage, mass, or extraaxial fluid collection. Small lacunar infarct in the head of the caudate nucleus on the right. POSTERIOR FOSSA: No signal alteration. No hemorrhage. No edema, masses or mass effect. Internal justin tory canals, cerebello-pontine angles, mastoids normal. DIFFUSION IMAGING: Negative for acute or sub-acute infarction. ORBITS: No masses. Globes normal. PARANASAL SINUSES: No fluid levels. Mucosa normal. OTHER: No other significant finding. IMPRESSION: Small lacunar infarct in the head of the right caudate nucleus. No acute intracranial i maging findings. EVIDENCE OF ACUTE STROKE: NO. TECHNICAL DOCUMENTATION: JOB ID: [id number] [employer]- All Rights Reserved Reading location - IP/workstation name: [email or web address]
== END ==
LOC: RAD 10:29
PROVIDERS: ATTEND Family Medicine
DX: R42 Dizziness and giddiness (principal)
CPT/HCPCS: 70551

== ENCOUNTER → 2018-05-15 | Outpatient (CLI) | payer MEDICARE, BC ==
--- NOTE | 2018-05-15 15:27 | RADIOLOGY REPORT (SQ) ---
EXAM DESCRIPTION: CAROTID DOPPLER COMPLETED DATE/TIME: 05/15/2018 3:17 pm REASON FOR STUDY: CVA I63.9 CEREBRAL INFARCTION, UNSPECIFIED COMPARISON: None. TECHNIQUE: Grayscale ultrasound, Doppler velocity and spectra, and color Doppler images acquired of the extra-cranial carotid and vertebral arteries. Images stored on PACS. LIMITATIONS: None. FINDINGS: RIGHT CAROTID CCA Velocities: Within normal limits. ICA Velocities Peak systolic 1.08 m/s. End diastolic 0.38 m/s. Proximal ICA/CCA peak systolic ratio 1.4. Spectra normal. No significant plaque. LEFT CAROTID CCA Velocities: Within normal limits. ICA Velocities Peak systolic 0.90 m/s. End diastolic 0.29 m/s. Proximal ICA/CCA peak systolic ratio 1.2. Spectra normal. No significant plaque. VERTEBRAL ARTERIES: Antegrade flow. Normal waveforms. SUBCLAVIAN ARTERIES: No finding. OTHER: No other significant finding. IMPRESSION: NO HEMODYNAMICALLY SIGNIFICANT STENOSIS. COMMENT: Quality ID #195: Velocity criteria are extrapolated from the diameter data as defined by t he Society of Radiologists in Ultrasound Consensus Conference. Radiology 2003: 229; 340-346. TECHNICAL DOCUMENTATION: JOB ID: [id number] [employer]- All Rights Reserved Reading location - IP/workstation name: [email or web address]
--- NOTE | 2018-05-15 22:49 | XCELERA REPORT ---
[address] [address] Transthoracic Echocardiogram Report Name: ARIEL COSTELLO Age: 68 yrs Gender: Male : 1950 Patient Status: Outpatient Patient Location: [facility] Study Date: 05/15/2018 02:06 PM Procedure: A complete two-dimensional transthoracic echocardiogram was performed (2D, M-mode, spectral and color flow Doppler). The study was technically difficult with many images being suboptimal in quality. Reason For Study: CVA Ordering Physician: FRANSISCO FENG Performed By: Kristie Hager Interpretation Summary The left ventricular ejection fraction is normal. There is mild concentric left ventricular hypertrophy. The left ventricle is grossly normal size. Doppler measurements suggest pseudonormalized left ventricular relaxation, which is associated with grade II/IV or mild to moderate diastolic dysfunction Regional wall motion abnormalities cannot be excluded due to limited visualization. Suspect distal anterior and distal anterior septal hypokinesia The right ventricular systolic function is normal. The left atrium is mildly dilated. The right atrium is normal in size There is a trace amount of mitral regurgitation There is no mitral valve stenosis. There is a trace amount of aortic regurgitation There is no aortic valve stenosis There is a trace or physiologic amount of tricuspid regurgitation Tricuspid regurgitation jet envelope not well defined to measure RV systolic pressure accurately. The aortic root is not well visualized but is probably normal size. The inferior vena cava was not well visualized There is no pericardial effusion. No definite cardiac source of CVA/TIA noted on this particular trans-thoracic study. Consider CHRISS if clinically indicated. May consider mobile cardiac telemetry monitoring (MCT) for ruling out transient AFIB. MMode/2D Measurements & Calculations IVSd: 0.85 cm LVIDd: 5.4 cm FS: 32.2 % Ao root diam: 3.0 cm LVIDs: 3.7 cm EDV(Teich): 140.9 ml Ao root area: 7.2 cm2 LVPWd: 1.0 cm ESV(Teich): 56.4 ml EF(Teich): 59.9 % Doppler Measurements & Calculations MV E max bebo: MV dec slope: Ao V2 max: AI max bebo: 42.4 cm/sec 104.4 cm/sec 199.2 cm/sec MV A max bebo: 152.5 cm/sec2 Ao max PG: AI max P.9 cm/sec MV dec time: 4.4 mmHg 15.9 mmHg MV E/A: 0.54 0.28 sec AI dec slope: 88.9 cm/sec2 AI P1/2t: 656.7 msec LV V1 max P.3 mmHg LV V1 max: 91.0 cm/sec Left Ventricle The left ventricle is grossly normal size. There is mild concentric left ventricular hypertrophy. The left ventricular ejection fraction is normal. Doppler measurements suggest pseudonormalized left ventricular relaxation, which is associated with grade II/IV or mild to moderate diastolic dysfunction. Regional wall motion abnormalities cannot be excluded due to limited visualization. Suspect distal anterior and distal anterior septal hypokinesia. Right Ventricle The right ventricle is grossly normal size. There is normal right ventricular wall thickness. The right ventricular systolic function is normal. Atria The right atrium is normal in size. The left atrium is mildly dilated. Interarterial septum not well visualized and not well dopplered. Cannot comment on ASD/PFO presence. Mitral Valve The mitral valve is grossly normal. There is no mitral valve stenosis. There is a trace amount of mitral regurgitation. Aortic Valve The aortic valve is grossly normal. There is no aortic valve stenosis. There is a trace amount of aortic regurgitation. Tricuspid Valve The tricuspid valve is not well visualized, but is grossly normal. There is no tricuspid stenosis. There is a trace or physiologic amount of tricuspid regurgitation. Tricuspid regurgitation jet envelope not well defined to measure RV systolic pressure accurately. Pulmonic Valve The pulmonic valve is not well visualized. Great Vessels The aortic root is not well visualized but is probably normal size. The inferior vena cava was not well visualized. Effusions There is no pericardial effusion. Incidental Findings No definite cardiac source of CVA/TIA noted on this particular trans-thoracic study. Consider CHRISS if clinically indicated. May consider mobile cardiac telemetry monitoring (MCT) for ruling out transient AFIB. : FRANSISCO FENG > Monet Pickett
== END ==
LOC: SP 12:31
PROVIDERS: ATTEND Family Medicine
DX: I63.9 Cerebral infarction, unspecified (principal); R42 Dizziness and giddiness; I10 Essential (primary) hypertension
CPT/HCPCS: 93306; 93880

== ENCOUNTER → 2018-10-09 | Outpatient (CLI) | payer MEDICARE, BC ==
--- NOTE | 2018-10-09 10:24 | RADIOLOGY REPORT (SQ) ---
EXAM DESCRIPTION: U/S ABDOMEN LIMITED W/O DOP COMPLETED DATE/TIME: 10/09/2018 8:38 am REASON FOR STUDY: ABNORMAL LFT'S (R94.5) R94.5 ABNORMAL RESULTS OF LIVER FUNCTION STUDIES COMPARISON: None. TECHNIQUE: Dynamic and static grayscale images acquired of the abdomen and recorded on PACS. Additio nal selected color Doppler and spectral images recorded. LIMITATIONS: Body habitus. Bowel gas. FINDINGS: PANCREAS: Poorly seen. No mass in the head or body of the pancreas. LIVER: Increased echogenicity. No mass. LIVER VASCULATURE: Normal directional flow of the main portal vein and hepatic veins. GALLBLADDER: No stones. Normal wall thickness. No pericholecystic fluid. ULTRASOUND-DETECTED PEDRAZA'S SIGN: Negative. INTRAHEPATIC DUCTS AND COMMON DUCT: CBD and intrahepatic ducts normal caliber. No filling defects. INFERIOR VENA CAVA: Not imaged. AORTA: No aneurysm. RIGHT KIDNEY: Normal size 11.9 cm. Normal echogenicity. No solid or suspicious masses. No hydronephr osis. No calcifications. PERITONEAL AND RIGHT PLEURAL SPACE: No ascites or effusions. OTHER: No other significant findings. IMPRESSION: Fatty liver. TECHNICAL DOCUMENTATION: JOB ID: [id number] [employer]- All Rights Reserved Reading location - IP/workstation name: [email or web address]
== END ==
LOC: RAD 07:55
PROVIDERS: ATTEND Family Medicine
DX: R94.5 Abnormal results of liver function studies (principal)
CPT/HCPCS: 76705

== ENCOUNTER → 2019-04-29 | Outpatient (CLI) | payer MEDICARE, BC ==
--- NOTE | 2019-04-29 17:10 | RADIOLOGY REPORT (SQ) ---
EXAM DESCRIPTION: CT HEAD WITHOUT COMPLETED DATE/TIME: 04/29/2019 4:27 pm REASON FOR STUDY: R41.3 OTHER AMNESIA R41.3 OTHER AMNESIA COMPARISON: MRI brain 05/09/2018 TECHNIQUE: Axial images acquired through the brain without intravenous contrast. Images reviewed wi th bone, brain and subdural windows. Additional sagittal and coronal reconstructions were generated. Images stored on PACS. All CT scanners at this facility use dose modulation, iterative reconstruction, and/or weight based d osing when appropriate to reduce radiation dose to as low as reasonably achievable (ALARA). [facility]: Dose Right [facility]: CareDose [facility]: Dose Right [facility]: Teradose 4D [facility]: [employer] RADIATION DOSE: CT Rad equipment meets quality standard of care and radiation dose reduction techniq ues were employed. CTDIvol: 48.7 mGy. DLP: 979 mGy-cm. mGy. LIMITATIONS: None. FINDINGS: VENTRICLES: Normal size and contour. CEREBRUM: No masses. No hemorrhage. No midline shift. No evidence for acute infarction. Punctate f ocus of encephalomalacia right basal ganglia axial image 20, unchanged from 05/09/2018 MRI brain, sma ll lacunar infarct CEREBELLUM: No masses. No hemorrhage. No alteration of density. No evidence for acute infarction. EXTRAAXIAL SPACES: No fluid collections. No masses. ORBITS AND GLOBE: No intra- or extraconal masses. Normal contour of globe without masses. CALVARIUM: No fracture. PARANASAL SINUSES: No fluid or mucosal thickening. SOFT TISSUES: No mass or hematoma. OTHER: No other significant finding. IMPRESSION: Tiny right caudate lacunar infarct unchanged from MRI brain 05/09/2018. No acute findings. EVIDENCE OF ACUTE STROKE: NO. COMMENT: Quality ID # 436: Final reports with documentation of one or more dose reduction techniques (e.g., Automated exposure control, adjustment of the mA and/or kV according to patient size, use of iterative reconstruction technique) TECHNICAL DOCUMENTATION: JOB ID: [id number] [employer] All Rights Reserved Reading location - IP/workstation name: [email or web address]
== END ==
LOC: RAD 16:03
PROVIDERS: ATTEND Family Medicine
DX: R41.3 Other amnesia (principal)
CPT/HCPCS: 70450

== ENCOUNTER → 2020-01-15 | Outpatient (CLI) | payer MEDICARE, BC ==
--- NOTE | 2020-01-15 10:06 | RADIOLOGY REPORT (SQ) ---
EXAM DESCRIPTION: LUMBAR SPINE COMPLETE IMAGES COMPLETED DATE/TIME: 01/15/2020 9:53 am REASON FOR STUDY: ACUTE PAIN OF RIGHT HIP M25.551 PAIN IN RIGHT HIP COMPARISON: None. NUMBER OF VIEWS: Five views including obliques. TECHNIQUE: AP, lateral, oblique, and sacral radiographic images acquired of the lumbar spine. LIMITATIONS: None. FINDINGS: MINERALIZATION: Normal. SEGMENTATION: Normal. No transitional anatomy. ALIGNMENT: Normal. VERTEBRAE: Maintained height. No fracture or worrisome bone lesion. DISCS: Disc space narrowing at L3-L4 with small anterior osteophytes. Small anterior osteophytes at 4 5 but relatively normal disc height. POSTERIOR ELEMENTS: Pedicles and facets are intact. No pars defect or posterior arch defects. HARDWARE: None in the spine. PARASPINAL SOFT TISSUES: Normal. PELVIS: Intact as visualized. No fractures or worrisome bone lesions. SI joints intact. OTHER: No other significant finding. IMPRESSION: Mild disc degenerative disease at L3-L4 and L4-L5. No acute findings. TECHNICAL DOCUMENTATION: JOB ID: [id number] 2010 [employer]- All Rights Reserved Reading location - IP/workstation name: [email or web address]
--- NOTE | 2020-01-15 10:07 | RADIOLOGY REPORT (SQ) ---
EXAM DESCRIPTION: HIP RIGHT AP/LATERAL IMAGES COMPLETED DATE/TIME: 01/15/2020 9:53 am REASON FOR STUDY: ACUTE PAIN OF RIGHT HIP M25.551 PAIN IN RIGHT HIP COMPARISON: None. NUMBER OF VIEWS: Two views. TECHNIQUE: AP and frog-leg view of the right hip. LIMITATIONS: None. FINDINGS: MINERALIZATION: Normal. RIGHT HIP: No fracture or dislocation. No worrisome bone lesions. No contour deformity. No joint sp goldy narrowing. OPPOSITE HIP: Prior total left hip arthroplasty. SOFT TISSUES: No findings. OTHER: No other significant finding. IMPRESSION: No acute findings involving the right hip. Prior total left hip arthroplasty. TECHNICAL DOCUMENTATION: JOB ID: [id number] 2010 [employer]- All Rights Reserved Reading location - IP/workstation name: [email or web address]
== END ==
LOC: OD 09:34
PROVIDERS: ATTEND Family Medicine
DX: M51.36 Other intervertebral disc degeneration, lumbar region (principal); M25.551 Pain in right hip; Z96.642 Presence of left artificial hip joint
CPT/HCPCS: 72110

== ENCOUNTER 2020-01-28 22:09 | Emergency (ER) | payer MEDICARE, BC ==
[2020-01-28] MEDS ORDERED: ONDANSETRON 4 MG TAB.RAPDIS PO ONE (23:04)
[2020-01-28] MEDS ORDERED: HYDROCODONE/ACETAMINOPHEN 5-325 MG TABLET PO ONE (23:04)
--- NOTE | 2020-01-28 23:05 | ER Document Report ---
ED Medical Screen (RME) - General Chief Complaint: Abdominal Pain Stated Complaint: ABDOMINAL PAIN Time Seen by Provider: 01/28/20 23:03 Primary Care Provider: FRANSISCO FENG MD [Primary Care Provider] - Follow up as needed Mode of Arrival: Ambulatory Information source: Patient Notes: HPI; 70-year-old male presents emergency room complaining of right lower quadrant pain for the past 2 days. Also states has not had a bowel movement in 2 days. Has the urge to go but is not able to have movement. States he tried taking some MiraLAX without relief. Pain is gotten worse since last night is now more sharp and constant. Complains of nausea but denies any vomiting. No previous abdominal surgeries. PE: Alert and oriented x3. Lungs: Clear to auscultation without rales, rhonchi, wheezes. Heart: Regular rate and rhythm without murmurs, rubs, gallops. Unable to do full abdominal exam in triage. I have greeted and performed a rapid initial assessment of this patient. A comprehensive ED assessment and evaluation of the patient, analysis of test results and completion of the medical decision making process will be conducted by additional ED providers. I have specifically instructed the patient or family members with the patient to immediately return to any nursing staff should anything change in the patient's condition or with their chief complaint. TRAVEL OUTSIDE OF THE [place] IN LAST 30 DAYS: No - Related Data Allergies/Adverse Reactions: No Known Allergies Allergy (Unverified 01/09/18 09:42) Home Medications: gabapentin, Past Medical History - Past Medical History Cardiac Medical History: Reports: Hx Hypertension - MEDICATED Denies: Hx Heart Attack Pulmonary Medical History: Denies: Hx Asthma Neurological Medical History: Denies: Hx Cerebrovascular Accident, Hx Seizures Renal/ Medical History: Denies: Hx Peritoneal Dialysis GI Medical History: Denies: Hx Hepatitis, Hx Hiatal Hernia, Hx Ulcer Infectious Medical History: Denies: Hx Hepatitis Past Surgical History: Denies: Hx Open Heart Surgery, Hx Pacemaker - Immunizations Hx Diphtheria, Pertussis, Tetanus Vaccination: No Physical Exam - Vital signs Vitals: Temp Pulse Resp BP Pulse Ox 97.8 F 57 L 12 209/85 H 97 01/28/20 22:17 01/28/20 22:17 01/28/20 22:17 01/28/20 22:17 01/28/20 22:17 Course - Vital Signs Vital signs: Temp Pulse Resp BP Pulse Ox 97.8 F 57 L 12 209/85 H 97 01/28/20 22:17 01/28/20 22:17 01/28/20 22:17 01/28/20 22:17 01/28/20 22:17 Doctor's Discharge - Discharge Referrals: FRANSISCO FENG MD [Primary Care Provider] - Follow up as needed
[2020-01-29 00:26] LABS: ABSOLUTE BASOPHILS # (AUTO) 0.1 10^3/uL (0.0-0.2); ABSOLUTE EOSINOPHILS # (AUTO) 0.2 10^3/uL (0.0-0.6); ABSOLUTE LYMPHOCYTES (AUTO) 1.3 10^3/uL (0.5-4.7); ABSOLUTE NEUT (AUTO) 10.1 10^3/uL (1.7-8.2); BASOPHILS % (AUTO) 0.6 % (0-2); EOSINOPHILS % (AUTO) 1.4 % (0-6); HEMATOCRIT 40.7 % (37.9-51.0); HEMOGLOBIN 14.2 g/dL (13.5-17.0); LYMPHOCYTES % (AUTO) 10.6 % (13-45); MEAN CORPUSCULAR HEMOGLOBIN 32.2 pg (27.0-33.4); MEAN CORPUSCULAR HGB CONC 34.8 g/dL (32.0-36.0); MEAN CORPUSCULAR VOLUME 92 fl (80-97); MONOCYTES % (AUTO) 7.7 % (3-13); PLATELET COUNT 169 10^3/uL (150-450); RED BLOOD COUNT 4.41 10^6/uL (4.35-5.55); RED CELL DISTRIBUTION WIDTH 12.7 % (11.5-14.0); SEGMENTED NEUTROPHILS % (AUTO) 79.7 % (42-78); TOTAL CELLS COUNTED % (AUTO) 100 %; WHITE BLOOD COUNT 12.7 10^3/uL (4.0-10.5)
[2020-01-29 00:40] LABS: APPEARANCE,URINE CLEAR; BILIRUBIN,URINE NEGATIVE (NEGATIVE); COLOR,URINE YELLOW; GLUCOSE, URINE NEGATIVE (NEGATIVE); KETONES,URINE NEGATIVE (NEGATIVE); LEUKOCYTE ESTERASE,URINE NEGATIVE (NEGATIVE); NITRITE,URINE NEGATIVE (NEGATIVE); PROTEIN,URINE 100 mg/dL (NEGATIVE); UROBILINOGEN,URINE NEGATIVE mg/dL (<2.0)
[2020-01-29 00:49] LABS: ALBUMIN 4.7 g/dL (3.5-5.0); ALKALINE PHOSPHATASE 56 U/L (38-126); ANION GAP 10 (5-19); ASPARTATE AMINO TRANSFERASE 33 U/L (17-59); BLOOD UREA NITROGEN 29 mg/dL (7-20); CALCIUM 9.6 mg/dL (8.4-10.2); CARBON DIOXIDE 26 mmol/L (22-30); CHLORIDE 102 mmol/L (98-107); GLUCOSE 172 mg/dL (75-110); POTASSIUM 5.8 mmol/L (3.6-5.0); TOTAL PROTEIN 7.7 g/dL (6.3-8.2)
[2020-01-29] MEDS ORDERED: NORMAL SALINE 1000 ML 1,000 ML IV ONE (01:04)
--- NOTE | 2020-01-29 02:40 | RADIOLOGY REPORT (SQ) ---
EXAM DESCRIPTION: CT ABDOMEN PELVIS WITH IV CONTRAST COMPLETED DATE/TME: 01/29/2020 01:04 CLINICAL HISTORY: RLQ pain, CREAT 1.56 COMPARISON: 02/20/2017 TECHNIQUE: CT of the abdomen and pelvis performed following IV administration of 100 mL Omnipaque 350. FINDINGS: Lung Bases: The visualized lung bases are clear. Calcified right basilar granuloma. Coronary artery atherosclerosis. Bones: Degenerative endplate spondylosis, facet arthropathy, and disc height narrowing of the visualized spine. Left total hip arthroplasty. Abdomen: Liver: The liver has normal size and decreased density. No intrahepatic biliary dilatation. Gallbladder: No calcified gallstones. Spleen, Pancreas, and Adrenal Glands: Calcified splenic granulomas. Pancreas and adrenal glands are unremarkable. Kidneys: There is a 0.2 cm obstructing calculus at the right UVJ producing mild right hydroureter and hydronephrosis. Right perinephric fat stranding. No left-sided hydronephrosis. Vasculature: Aortoiliac atherosclerosis. IVC is unremarkable. The portal vein is patent. The proximal visceral and renal arteries are patent. Stomach: The stomach and duodenum have normal course. Other: No free intraperitoneal air. No free fluid or lymphadenopathy. Pelvis: Bladder: Urinary bladder is unremarkable. Bowel: No dilated loops of large or small bowel. Appendix: Normal appendix. Pelvis: Prostate is not enlarged. IMPRESSION: 1. There is a 0.2 cm obstructing calculus at the right UVJ producing mild right hydroureter and hydronephrosis. 2. Hepatic steatosis. 3. Coronary artery atherosclerosis. This exam was performed according to our departmental dose-optimization program, which includes automated exposure control, adjustment of the mA and/or kV according to patient size and/or use of iterative reconstruction technique.
[2020-01-29] MEDS ORDERED: OXYCODONE HCL IR 5 MG TABLET PO ONE ×2 (02:41→05:33)
[2020-01-29] MEDS ORDERED: ONDANSETRON 4 MG TAB.RAPDIS PO ONE (05:33)
--- NOTE | 2020-01-29 05:43 | ER Document Report ---
ED GI/ - General Chief Complaint: Abdominal Pain Stated Complaint: ABDOMINAL PAIN Time Seen by Provider: 01/28/20 23:03 Primary Care Provider: FRANSISCO FENG MD [Primary Care Provider] - 02/01/20 Mode of Arrival: Ambulatory Notes: Patient is a 70-year-old male that comes to the emergency department for chief complaint of right lower abdominal pain for the past 2 days. Pain does radiate around to his right flank. Patient denies vomiting but he has reported nausea. Patient is not any fever, dysuria, hematuria. He had a kidney stone almost 30 years ago and none since. He denies any abdominal surgeries. Patient does state he has been somewhat constipated for the past 3 days, he took a dose of MiraLAX and did not have a bowel movement yet. Patient denies any other complaints. TRAVEL OUTSIDE OF THE [place] IN LAST 30 DAYS: No - Related Data Allergies/Adverse Reactions: No Known Allergies Allergy (Unverified 01/09/18 09:42) Home Medications: gabapentin, Past Medical History - General Information source: Patient - Social History Smoking Status: Never Smoker Frequency of alcohol use: None Drug Abuse: None Lives with: Family Family History: Reviewed & Not Pertinent Patient has homicidal ideation: No - Past Medical History Cardiac Medical History: Reports: Hx Hypertension - MEDICATED Denies: Hx Heart Attack Pulmonary Medical History: Denies: Hx Asthma Neurological Medical History: Denies: Hx Cerebrovascular Accident, Hx Seizures Renal/ Medical History: Reports: Hx Kidney Stones. Denies: Hx Peritoneal Dialysis GI Medical History: Denies: Hx Hepatitis, Hx Hiatal Hernia, Hx Ulcer Infectious Medical History: Denies: Hx Hepatitis Past Surgical History: Denies: Hx Open Heart Surgery, Hx Pacemaker - Immunizations Hx Diphtheria, Pertussis, Tetanus Vaccination: Yes Review of Systems - Review of Systems Constitutional: No symptoms reported EENT: No symptoms reported Cardiovascular: No symptoms reported Respiratory: No symptoms reported Gastrointestinal: See HPI Genitourinary: See HPI Male Genitourinary: No symptoms reported Musculoskeletal: No symptoms reported Skin: No symptoms reported Hematologic/Lymphatic: No symptoms reported Neurological/Psychological: No symptoms reported Physical Exam - Vital signs Vitals: Temp Pulse Resp BP Pulse Ox 97.8 F 57 L 12 209/85 H 97 01/28/20 22:17 01/28/20 22:17 01/28/20 22:17 01/28/20 22:17 01/28/20 22:17 - Notes Notes: GENERAL: Alert, interacts well. No acute distress. HEAD: Normocephalic, atraumatic. EYES: Pupils equal, round, and reactive to light. Extraocular movements intact. ENT: Oral mucosa moist, tongue midline. Oropharynx unremarkable. Airway patent. NECK: Full range of motion. Supple. Trachea midline. No lymphadenopathy. LUNGS: Clear to auscultation bilaterally, no wheezes, rales, or rhonchi. No respiratory distress. Non-tender chest wall. HEART: Regular rate and rhythm. No murmur ABDOMEN: Soft, non-tender. Non-distended. Bowel sounds present in all 4 quadrants. EXTREMITIES: Moves all 4 extremities spontaneously. No edema, normal radial and dorsalis pedis pulses bilaterally. No cyanosis. BACK: No overt CVA tenderness. No cervical, thoracic, lumbar midline tenderness. No saddle anesthesia, normal distal neurovascular exam. Moves all extremities in full range of motion. NEUROLOGICAL: Alert and oriented x3. Normal speech. Cranial nerves II through XII grossly intact. Strength 5/5 in all extremities. PSYCH: Normal affect, normal mood. SKIN: Warm, dry, normal turgor. No rashes or lesions noted. Course - Re-evaluation Re-evalutation: I had seen patient briefly in triage and given him p.o. medication for pain, on reevaluation is much more comfortable in appearance. He is calm and well- appearing. Vital signs show hypertension but this is improving. No fever, tachycardia, or hypotension. CBC shows mild leukocytosis. Chemistry shows borderline elevated creatinine and elevated potassium at 5.8. Urinalysis does not show infection. CT showing passing 2 mm right-sided ureterolithiasis at the right UVJ. I do suspect this is the cause of patient's pain. Fortunately there is no evidence of secondary infection. Chemistry is repeated and potassium is significantly improved down to 5.3. Kidney function is improved as well. Discussed options with patient. At this point patient will have his potassium closely rechecked, I suspect this is secondary to his constipation issues over the past 3 days, he will be p rovided a stool softener and I discussed this. I discussed return precautions and urology follow-up in detail. Patient states appreciation and agreement. Stable and well-appearing at time of discharge. Patient is going home with his . - Vital Signs Vital signs: Temp Pulse Resp BP Pulse Ox 98.1 F 57 L 16 164/95 H 99 01/29/20 07:11 01/29/20 07:11 01/29/20 07:11 01/29/20 07:11 01/29/20 07:11 - Laboratory Result Diagrams: 01/29/20 00:05 01/29/20 05:50 Laboratory results interpreted by me: 01/29/20 01/29/20 01/29/20 00:05 00:05 00:10 WBC 12.7 H Lymph % (Auto) 10.6 L Absolute Neuts (auto) 10.1 H Seg Neutrophils % 79.7 H Sodium Potassium 5.8 H BUN 29 H Creatinine 1.56 H Est GFR ( Amer) 54 L Est GFR (MDRD) Non-Af 44 L Glucose 172 H Lipase 357.3 H Urine Protein 100 H Urine Blood SMALL H 01/29/20 05:50 WBC Lymph % (Auto) Absolute Neuts (auto) Seg Neutrophils % Sodium 136.0 L Potassium 5.3 H BUN 27 H Creatinine 1.43 H Est GFR ( Amer) Est GFR (MDRD) Non-Af 49 L Glucose 155 H Lipase Urine Protein Urine Blood Discharge - Discharge Clinical Impression: Ureterolithiasis Abdominal pain Qualifiers: Abdominal location: lower abdomen, unspecified Qualified Code(s): R10.30 - Lower abdominal pain, unspecified Condition: Stable Disposition: HOME, SELF-CARE Additional Instructions: You are passing a 2 mm kidney stone on the right side. This is small enough to pass on its own and should pass over the next several days. Drink plenty of fluids, take the pain and nausea medication if needed. Your potassium level is elevated and needs to be rechecked closely with primary care. It is important that you have bowel movements, please take the stool softener prescribed 1-2 times daily especially while taking the pain medication. Follow-up with the urology referral listed below. Return if you worsen including severe worsening pain, fever, uncontrolled vomiting, or any other concerning or worsening symptoms. [facility] [address] [place] [address] [facility] [address] [place], [place] [id number] Prescriptions: Polyethylene Glycol 3350 [Miralax Powder 17 gm/Packet] 1 packet PO DAILY #1 pkg Oxycodone HCl/Acetaminophen [Percocet 5-325 mg Tablet] 1 tab PO TID PRN #15 tab PRN Reason: Ondansetron [Zofran Odt 4 mg Tablet] 1 - 2 tab PO Q4H PRN #15 tab.rapdis PRN Reason: For Nausea/Vomiting Referrals: FRANSISCO FENG MD [Primary Care Provider] - 02/01/20
[2020-01-29 06:29] LABS: ANION GAP 10 (5-19); BLOOD UREA NITROGEN 27 mg/dL (7-20); CALCIUM 9.2 mg/dL (8.4-10.2); CARBON DIOXIDE 26 mmol/L (22-30); CHLORIDE 100 mmol/L (98-107); GLUCOSE 155 mg/dL (75-110); POTASSIUM 5.3 mmol/L (3.6-5.0)
[2020-01-29] MEDS ORDERED: HYDROCODONE/ACETAMINOPHEN 5-325 MG (6 TAB/ER DISP) PO PRN (07:00)
[2020-01-29] MEDS ORDERED: ONDANSETRON ODT 4 MG TAB (6 TAB/ER DISP) PO PRN ×2 (07:00→07:03)
[2020-01-29 07:14] VITALS: BP 164/95
== END 2020-01-29 07:15 | disposition home or self-care (01) ==
LOC: ER 22:09
DX: N20.1 Calculus of ureter (principal); R10.30 Lower abdominal pain, unspecified; R10.31 Right lower quadrant pain; Z79.899 Other long term (current) drug therapy; I10 Essential (primary) hypertension
CPT/HCPCS: 99285; 96360; 36415; 83690; 85025; 80053; 81001; 74177; A9270 ×4; J7030; S0119